=== PATIENT | male | born 1945 | race Caucasian/White ===

== ENCOUNTER 2021-11-27 14:19 | Emergency (ER) | payer MEDICARE, OTHER ==
[~2021-11-27] VITALS: Ht 185.4 cm; Wt 91.8 kg
[2021-11-27] MEDS ORDERED: ACHD5005 PO ×2 (14:47→16:02)
[2021-11-27] MEDS ORDERED: MONT-40 PO (14:48)
[2021-11-27] MEDS ORDERED: ATOR10TA PO (14:48)
[2021-11-27] MEDS ORDERED: ONDA4TAB11 PO (16:02)
--- NOTE | 2021-11-27 16:03 | ED General ---
General Chief Complaint: General Problems/Pain Stated Complaint: MED REFILL - HYDRO Nursing Triage Note: pt c/o abd pain due to liver cancer. he just moved here to be with family. pt took his last hydrocodone this morning. he is scheduled to see dr mireles on saturday at 0915. Source of Information: Patient, Family Exam Limitations: No Limitations (ZAY CHILDRESS) History of Present Illness Date Seen by Provider: Nov 27, 2021 Time Seen by Provider: 16:00 Initial Comments Patient is a 76-year-old male with a history of liver cancer, colon cancer, lung cancer. Patient recently moved from [place] living with family. Scheduled to follow-up with Dr. Mireles on Saturday. Does take pain medication as needed but was not able to get pain medication until seen on Saturday. He does report some nausea and vomiting but that has been ongoing. Reports radiation for his lung cancer. States he has been eating small amounts at but drinking plenty of fluids. Normal urination. He denies of any worsening pain. He refuses any lab work or further evaluation at this time. Requesting a few days worth of pain medicine and nausea medication. (ZAY CHILDRESS) Allergies and Home Medications Allergies Coded Allergies: Beta-Blockers (Beta-Adrenergic Bloc (Unverified Adverse Reaction, Unknown, fatigue, 11/27/21) NSAIDS (Non-Steroidal Anti-Inflamma (Unverified Adverse Reaction, Unknown, hives, 11/27/21) aspirin (Unverified Adverse Reaction, Unknown, hives, 11/27/21) peanut (Unverified Adverse Reaction, Unknown, hives, 11/27/21) Patient Home Medication List Home Medication List Reviewed: Yes (ZAY CHILDRESS) Home Medication List Reviewed: Yes (GIULIA WHITEHEAD MD) Atorvastatin Calcium (Lipitor) 10 Mg Tablet, 10 MG PO HS, (Reported) Entered as Reported by: CARLA DEVLIN on 11/27/211447 Last Action: New Order Hydrocodone/Acetaminophen (Hydrocodone-Acetamin 5-325 mg) 1 Each Tablet, 1 TAB PO Q8H PRN for PAIN-MODERATE (5-7), (Reported) Entered as Reported by: CARLA DEVLIN on 11/27/21 1447 Last Action: New Order Hydrocodone/Acetaminophen (Hydrocodone-Acetamin 5-325 mg) 1 Each Tablet, 1 TAB PO Q8H PRN for PAIN-MODERATE (5-7) Prescribed by: ASHWIN DIXON on 11/27/21 1603 Montelukast Sodium (Montelukast Sodium) 10 Mg Tablet, 10 MG PO HS, (Reported) Entered as Reported by: CARLA DEVLIN on 11/27/21 1448 Last Action: New Order Ondansetron (Ondansetron Odt) 4 Mg Tab.rapdis, 4 MG PO Q6H Prescribed by: ASHWIN DIXON on 11/27/21 1602 Review of Systems Review of Systems Constitutional: No chills, No diaphoresis, No malaise, No weakness EENTM: No double vision, No mouth pain Respiratory: No cough, No short of breath, No wheezing Cardiovascular: No chest pain Gastrointestinal: No RUQ; abdominal pain, nausea, vomiting Genitourinary: No decreased output Musculoskeletal: No back pain, No joint pain; muscle pain Skin: No change in color, No change in hair/nails (ZAY CHILDRESS) All Other Systems Reviewed Negative Unless Noted: Yes (ZAY CHILDRESS) Physical Exam Vital Signs Vital Signs - First Documented 11/27/21 11/27/21 14:39 16:11 Temp 36.3 Pulse 82 Resp 17 B/P (MAP) 141/82 Pulse Ox 96 O2 Delivery Room Air (GIULIA WHITEHEAD MD) Vital Signs Capillary Refill : Less Than 3 Seconds (ZAY CHILDRESS) Height, Weight, BMI Height: '" Weight: lbs. oz. kg; 26.00 BMI Method: General Appearance: No Apparent Distress, WD/WN Eyes: Bilateral Eye Normal Inspection, Bilateral Eye PERRL, Bilateral Eye EOMI HEENT: PERRL/EOMI, TMs Normal, Normal ENT Inspection, Pharynx Normal Neck: Full Range of Motion, Normal Inspection Respiratory: Chest Non Tender, Lungs Clear, Normal Breath Sounds, No Accessory Muscle Use, No Respiratory Distress Cardiovascular: Regular Rate, Rhythm, No Edema, No Gallop, No JVD, No Murmur Gastrointestinal: Normal Bowel Sounds, No Organomegaly, No Pulsatile Mass, Soft Back: Normal Inspection, No CVA Tenderness Extremity: Normal Capillary Refill, Normal Inspection, Normal Range of Motion, Non Tender Skin: Normal Color, Warm/Dry (ZAY CHILDRESS) Progress/Results/Core Measures Suspected Sepsis SIRS Temperature: Pulse: Respiratory Rate: Blood Pressure / Mean: (ZAY CHILDRESS) Results/Orders Vital Signs/I&O 11/27/21 11/27/21 14:39 16:11 Temp 36.3 36.3 Pulse 82 Resp 17 B/P (MAP) 141/82 Pulse Ox 96 O2 Delivery Room Air (GIULIA WHITEHEAD MD) Vital Signs/I&O Capillary Refill : Less Than 3 Seconds (ZAY CHILDRESS) Departure Communication (PCP) Patient reports chronic pain. He takes hydrocodone every 8 hours as needed for pain. Recently moved down from [place] to be closer his family secondary to his current health and not able to take care of himself. He is scheduled follow-up with Dr. Mireles on Saturday. Has not establish care. History liver cancer, lung cancer and colon cancer. He has been eating but a low amount. Generalized abdominal pain and chest discomfort without any current pain at this time. He takes pain medication which improves his pain. He refused any lab work or any type of work-up at this time. He is requesting a few days worth of pain medication till he can see his primary care physician. Requesting Zofran. Vital signs stable. Patient states he feels well and feels like he can go home at this time and if any change in symptoms he already return back to ED. Once again refused any further lab work at this time. (ZAY CHILDRESS) Impression Primary Impression: Medication refill Disposition: HOME, SELF-CARE Condition: Stable Departure-Patient Inst. Decision time for Depature: 16:01 (ZAY CHILDRESS) Referrals: RADHA MIRELES DO (PCP/Family) Primary Care Physician Patient Instructions: Medication Safety, Adult Scripts Hydrocodone/Acetaminophen (Hydrocodone-Acetamin 5-325 mg) 1 Each Tablet 1 TAB PO Q8H PRN for PAIN-MODERATE (5-7), #10 TAB Prov: ZAY CHILDRESS 11/27/21 Ondansetron (Ondansetron Odt) 4 Mg Tab.rapdis 4 MG PO Q6H, #10 TAB Prov: ZAY CHILDRESS 11/27/21 ZAY CHILDRESS Nov 27, 2021 16:03 GIULIA WHITEHEAD MD Nov 28, 2021 06:11
[2021-11-27 16:11] VITALS: BP 141/82
== END 2021-11-27 16:11 | disposition home or self-care (01) ==
LOC: ER 14:22
DX: Z76.0 Encounter for issue of repeat prescription (principal)
CPT/HCPCS: 99281

== ENCOUNTER → 2021-11-29 | Outpatient (CLI) | payer MEDICARE ==
[~2021-11-29] MED LIST: ACHD5005 PO; ATOR10TA PO; DOCU-143 PO; MONT-40 PO; NITR-65 PO; ONDA4TAB11 PO; ONDA4TAB11 SL; OXYC10TA55 PO; OXYC5TAB PO
[2021-11-29 12:02] LABS: CLARITY,URINE CLOUDY; COLOR,URINE YELLOW; GLUCOSE, URINE (UA) NEGATIVE (NEGATIVE); KETONES,URINE TRACE (NEGATIVE); LEUKOCYTE ESTERASE ,URINE 2+ (NEGATIVE); NITRITE,URINE NEGATIVE (NEGATIVE); PROTEIN,URINE 1+ (NEGATIVE)
[2021-11-29 12:03] LABS: BASOPHILS % (AUTO) 0 % (0-10); EOSINOPHILS # (AUTO) 0.2 10^3/uL (0.0-0.3); EOSINOPHILS % (AUTO) 1 % (0-10); HEMATOCRIT 41 % (40-54); HEMOGLOBIN 13.6 g/dL (13.3-17.7); LYMPHOCYTES % (AUTO) 8 % (12-44); MEAN CORPUSCULAR HEMOGLOBIN 30 pg (25-34); MEAN CORPUSCULAR HGB CONC 33 g/dL (32-36); MEAN CORPUSCULAR VOLUME 90 fL (80-99); MEAN PLATELET VOLUME 10.7 fL (9.0-12.2); MONOCYTES # (AUTO) 1.1 10^3/uL (0.0-1.0); MONOCYTES % (AUTO) 8 % (0-12); NEUTROPHILS % (AUTO) 82 % (42-75); PLATELET COUNT 453 10^3/uL (130-400); WHITE BLOOD COUNT 13.3 10^3/uL (4.3-11.0)
[2021-11-29 12:25] LABS: ALBUMIN 3.3 GM/DL (3.2-4.5); BILIRUBIN,TOTAL 2.9 MG/DL (0.1-1.0); CREATININE SERUM 0.83 MG/DL (0.60-1.30); POTASSIUM 4.6 MMOL/L (3.6-5.0); TOTAL PROTEIN 7.6 GM/DL (6.4-8.2)
[2021-11-29 12:32] LABS: BILIRUBIN,URINE 2+ (NEGATIVE)
[2021-11-29 12:33] LABS: BACTERIA,URINE LARGE /HPF; RBC,URINE 0-2 /HPF; SQUAMOUS EPITHELIAL CELL,UR 0-2 /HPF; WBC,URINE 50-100 /HPF
--- NOTE | 2021-11-29 12:36 | Diagnostic Imaging Report ---
INDICATION: Liver cancer. TIME OF EXAM: 12:09 PM. COMPARISON: No prior studies are available for comparison. FINDINGS: There are surgical clips in the right abdomen. There are some calcific densities in both the right and left abdomen which could be renal calculi. The bowel gas pattern appears nonobstructed. There is moderate stool in the colon. No free air is seen. IMPRESSION: Abdominal calcifications which could be urinary tract in origin. CT may be useful for further evaluation if clinically indicated. The study is otherwise unremarkable. Dictated by: Dictated on workstation # [id number]
== END ==
LOC: RAD 11:23
PROVIDERS: ATTEND Family Medicine
DX: C22.9 Malignant neoplasm of liver, not specified as primary or secondary (principal); C18.9 Malignant neoplasm of colon, unspecified; C34.90 Malignant neoplasm of unspecified part of unspecified bronchus or lung
CPT/HCPCS: 36415; 74019; 80053; 80061; 81000; 85025; 85730; 87088

== ENCOUNTER 2021-12-01 06:27 | Emergency (ER) | payer MEDICARE ==
[~2021-12-01] VITALS: Ht 183 cm; Wt 86.6 kg
[~2021-12-01 06:27] MED LIST changes: -DOCU-143 PO; -NITR-65 PO; -ONDA4TAB11 SL; -OXYC10TA55 PO; -OXYC5TAB PO
[2021-12-01] MEDS ORDERED: fentaNYL INJ 100 MCG/2 ML AMP IVP ONE (06:45)
[2021-12-01 06:57] LABS: INR 1.1 (0.8-1.4); PROTHROMBIN TIME PATIENT 14.5 SEC (12.2-14.7)
[2021-12-01 06:59] LABS: BASOPHILS % (AUTO) 0 % (0-10); EOSINOPHILS # (AUTO) 0.2 10^3/uL (0.0-0.3); EOSINOPHILS % (AUTO) 2 % (0-10); HEMATOCRIT 39 % (40-54); HEMOGLOBIN 13.5 g/dL (13.3-17.7); LYMPHOCYTES # (AUTO) 0.9 10^3/uL (1.0-4.0); LYMPHOCYTES % (AUTO) 6 % (12-44); MEAN CORPUSCULAR HEMOGLOBIN 30 pg (25-34); MEAN CORPUSCULAR HGB CONC 34 g/dL (32-36); MEAN CORPUSCULAR VOLUME 88 fL (80-99); MEAN PLATELET VOLUME 10.7 fL (9.0-12.2); MONOCYTES # (AUTO) 1.4 10^3/uL (0.0-1.0); MONOCYTES % (AUTO) 10 % (0-12); NEUTROPHILS # (AUTO) 11.9 10^3/uL (1.8-7.8); NEUTROPHILS % (AUTO) 82 % (42-75); PLATELET COUNT 503 10^3/uL (130-400); WHITE BLOOD COUNT 14.5 10^3/uL (4.3-11.0)
[2021-12-01 07:00] LABS: ALBUMIN 3.2 GM/DL (3.2-4.5)
[2021-12-01 07:01] LABS: CALCIUM 10.2 MG/DL (8.5-10.1)
[2021-12-01 07:02] LABS: TOTAL PROTEIN 7.7 GM/DL (6.4-8.2)
--- NOTE | 2021-12-01 07:02 | ED Cough/URI ---
General Chief Complaint: Respiratory Problems Stated Complaint: SOB,LIVER CA Nursing Triage Note: c/o cough, soa, gen pain since 0000 Source: patient Exam Limitations: no limitations (ALLY VERAS MED STUDENT) History of Present Illness Date Seen by Provider: Dec 01, 2021 Time Seen by Provider: 06:45 Initial Comments Mr. Abarca is a 76yo male with PMH of Lung cancer, COPD, and non-treatable liver cancer that presents to ED today due to cough and SOB. States he Recently moved to [place] with his daughter due to the status of his cancer, the inability to care for himself, and to live with his daughter. He does not have a local oncologist. States that for the past couple of days he has had a cough, SOA, and yellow phlegm. He came in this morning because his cough was worse and feeling like it was harder to breathe. He also has chronic abdominal and back pain related to his cancer. He also expressed wanting to get some pain control and he and his daughter would also like to get the process of hospice started. He is currently being treated for UTI. (ALLY VERAS MED STUDENT) Allergies and Home Medications Allergies Coded Allergies: Beta-Blockers (Beta-Adrenergic Bloc (Unverified Adverse Reaction, Unknown, fatigue, 11/27/21) NSAIDS (Non-Steroidal Anti-Inflamma (Unverified Adverse Reaction, Unknown, hives, 11/27/21) aspirin (Unverified Adverse Reaction, Unknown, hives, 11/27/21) peanut (Unverified Adverse Reaction, Unknown, hives, 11/27/21) Patient Home Medication List Home Medication List Reviewed: Yes (BEVERLY FOREBS MD) Atorvastatin Calcium (Lipitor) 10 Mg Tablet, 10 MG PO HS, (Reported) Entered as Reported by: CARLA DEVLIN on 11/27/21 1448 Docusate Sodium (Colace) 100 Mg Capsule, 100 MG PO DAILY Prescribed by: BEVERLY DEAN on 12/01/21 0838 Hydrocodone/Acetaminophen (Hydrocodone-Acetamin 5-325 mg) 1 Each Tablet, 1 TAB PO Q8H PRN for PAIN-MODERATE (5-7), (Reported) Entered as Reported by: CARLA DEVLIN on 11/27/21 1447 Hydrocodone/Acetaminophen (Hydrocodone-Acetamin 5-325 mg) 1 Each Tablet, 1 TAB PO Q8H PRN for PAIN-MODERATE (5-7) Prescribed by: ASHWIN DIXON on 11/27/21 1603 Montelukast Sodium (Montelukast Sodium) 10 Mg Tablet, 10 MG PO HS, (Reported) Entered as Reported by: CARLA DEVLIN on 11/27/21 1448 Nitrofurantoin Monohyd/M-Cryst (Macrobid 100 mg Capsule) 100 Mg Capsule, 1 TAB PO BID Prescribed by: BEVERLY DEAN on 12/01/21 0909 Ondansetron (Ondansetron Odt) 4 Mg Tab.rapdis, 4 MG PO Q6H Prescribed by: ASHWIN DIXON on 11/27/21 1602 Ondansetron (Ondansetron Odt) 4 Mg Tab.rapdis, 4 MG SL Q4H PRN for NAUSEA/VOMITING Prescribed by: BEVERLY DEAN on 12/01/21 0838 Oxycodone HCl (Oxycontin) 10 Mg Tab.er.12h, 10 MG PO BID Prescribed by: BEVERLY DEAN on 12/01/21 0839 Oxycodone HCl (Oxycodone HCl) 5 Mg Tablet, 5 MG PO Q6H PRN for PAIN-BREAKTHROUGH Prescribed by: BEVERLY DEAN on 12/01/21 0839 Review of Systems Review of Systems Constitutional: No chills, No fever EENTM: No hearing loss, No vision loss Respiratory: cough; No hemoptysis; short of breath; No wheezing Cardiovascular: No chest pain, No palpitations Gastrointestinal: abdominal pain (diffuse); No constipation, No diarrhea, No nausea, No vomiting Genitourinary: No dysuria, No hematuria Musculoskeletal: No joint pain, No joint swelling Skin: No lesions, No rash Psychiatric/Neurological: Denies Headache, Denies Numbness (ALLY VERAS MED STUDENT) Past Ebvjswi-Qhicah-Jnaqgy Hx Patient Social History Tobacco Use?: No Substance use?: No Alcohol Use?: No Pt feels they are or have been: No (ALLY VERAS MED STUDENT) Past Medical History Surgery/Hospitalization HX: hernia, cholecystectomy, copd, liver ca, lung ca, high lipids (ALLY VERAS [employer] STUDENT) Surgeries: Yes Abdominal (hernia), Gallbladder Respiratory: Yes COPD Cardiac: Yes High Cholesterol Neurological: No Reproductive Disorders: No Gastrointestinal: No Musculoskeletal: No Endocrine: No HEENT: No Cancer: Yes Liver, Lung Did You Recieve Any Treatments: Yes Psychosocial: No Integumentary: No (BEVERLY FORBES MD) Physical Exam Vital Signs - First Documented 12/01/21 06:30 Temp 36.4 Pulse 94 Resp 18 B/P (MAP) 137/91 (106) Pulse Ox 92 O2 Delivery Room Air (BEVERLY FORBES MD) Capillary Refill : (ALLY VERAS STUDENT) Height: '" Weight: lbs. oz. kg; 25.00 BMI Method: General Appearance: mild distress, other (chronically ill) Eyes: Bilateral Eye Normal Inspection, Bilateral Eye PERRL, Bilateral Eye EOMI HEENT: PERRL/EOMI, pharynx normal Respiratory: chest non-tender, crackles (R base) Cardiovascular: regular rate, rhythm, no edema, no murmur Gastrointestinal: normal bowel sounds, distended, tenderness (generalized), hernia (umbilical), other (abdomen is firm and swollen) Extremities: non-tender, no pedal edema, no calf tenderness Neurologic/Psychiatric: alert, normal mood/affect, oriented x 3 Skin: normal color, warm/dry (ALLY VERAS STUDENT) Progress/Results/Core Measures Suspected Sepsis SIRS Temperature: Pulse: 94 Respiratory Rate: 18 Laboratory Tests 12/01/21 06:35: Blood Pressure 137 /91 Mean: 106 Laboratory Tests 12/01/21 06:35: (ALLY VERAS STUDENT) Results/Orders Lab Results Laboratory Tests Test 12/01/21 06:35 12/01/21 06:52 Range/Units White Blood Count 14.5 H 4.3-11.0 10^3/uL Red Blood Count 4.50 4.30-5.52 10^6/uL Hemoglobin 13.5 13.3-17.7 g/dL Hematocrit 39 L 40-54 % Mean Corpuscular Volume 88 80-99 fL Mean Corpuscular Hemoglobin 30 25-34 pg Mean Corpuscular Hemoglobin Concent 34 32-36 g/dL Red Cell Distribution Width 16.0 H 10.0-14.5 % Platelet Count 503 H 130-400 10^3/uL Mean Platelet Volume 10.7 9.0-12.2 fL Immature Granulocyte % (Auto) 1 % Neutrophils (%) (Auto) 82 H 42-75 % Lymphocytes (%) (Auto) 6 L 12-44 % Monocytes (%) (Auto) 10 0-12 % Eosinophils (%) (Auto) 2 0-10 % Basophils (%) (Auto) 0 0-10 % Neutrophils # (Auto) 11.9 H 1.8-7.8 10^3/uL Lymphocytes # (Auto) 0.9 L 1.0-4.0 10^3/uL Monocytes # (Auto) 1.4 H 0.0-1.0 10^3/uL Eosinophils # (Auto) 0.2 0.0-0.3 10^3/uL Basophils # (Auto) 0.0 0.0-0.1 10^3/uL Immature Granulocyte # (Auto) 0.1 0.0-0.1 10^3/uL Neutrophils % (Manual) 81 % Lymphocytes % (Manual) 10 % Monocytes % (Manual) 8 % Band Neutrophils 1 % Blood Morphology Comment NORMAL Prothrombin Time 14.5 12.2-14.7 SEC INR Comment 1.1 0.8-1.4 Sodium Level 132 L 135-145 MMOL/L Potassium Level 5.0 3.6-5.0 MMOL/L Chloride Level 94 L 98-107 MMOL/L Carbon Dioxide Level 20 L 21-32 MMOL/L Anion Gap 18 H 5-14 MMOL/L Blood Urea Nitrogen 22 H 7-18 MG/DL Creatinine 0.78 0.60-1.30 MG/DL Estimat Glomerular Filtration Rate 93 BUN/Creatinine Ratio 28 Glucose Level 77 70-105 MG/DL Calcium Level 10.2 H 8.5-10.1 MG/DL Corrected Calcium 10.8 H 8.5-10.1 MG/DL Total Bilirubin 3.5 H 0.1-1.0 MG/DL Aspartate Amino Transf (AST/SGOT) 252 H 5-34 U/L Alanine Aminotransferase (ALT/SGPT) 103 H 0-55 U/L Alkaline Phosphatase 1052 H 40-136 U/L C-Reactive Protein High Sensitivity 28.77 H 0.00-0.50 MG/DL Total Protein 7.7 6.4-8.2 GM/DL Albumin 3.2 3.2-4.5 GM/DL Influenza Type A (RT-PCR) Not Detected Not Detecte Influenza Type B (RT-PCR) Not Detected Not Detecte SARS-CoV-2 RNA (RT-PCR) Not Detected Not Detecte (BEVERLY FORBES MD) My Orders Orders - BEVERLY FORBES MD Chest Pa/Lat (2 View) (12/01/21 06:34) Fentanyl Inj (Sublimaze Injection) (12/01/21 06:45) Cbc With Automated Diff (12/01/21 06:45) Comprehensive Metabolic Panel (12/01/21 06:45) Hs C Reactive Protein (12/01/21 06:45) Protime With Inr (12/01/21 06:45) Covid 19 Inhouse Test (12/01/21 06:45) Influenza A And B By Pcr (12/01/21 06:45) Manual Differential (12/01/21 06:35) Ekg Tracing (12/01/21 07:00) Morphine Injection (Morphine Injection (12/01/21 07:22) Ondansetron Injection (Zofran Injectio (12/01/21 08:45) Code/Resuscitation (12/01/21 08:32) (BEVERLY FORBES MD) Medications Given in ED Current Medications Medications Dose Ordered Sig/Obey Route Start Time Stop Time Status Last Admin Dose Admin Fentanyl Citrate 50 mcg ONCE ONCE IVP 12/01/21 06:45 12/01/21 06:47 DC 12/01/21 06:52 50 MCG Ondansetron HCl 4 mg ONCE ONCE IVP 12/01/21 08:45 12/01/21 08:46 DC 12/01/21 09:23 4 MG (BEVERLY FORBES MD) Vital Signs/I&O 12/01/21 06:30 Temp 36.4 Pulse 94 Resp 18 B/P (MAP) 137/91 (106) Pulse Ox 92 O2 Delivery Room Air (BEVERLY FORBES MD) Vital Signs/I&O Capillary Refill : (ALLY VERAS MED STUDENT) Blood Pressure Mean: 106 Progress Note : Progress Note Pain was managed with IV fentanyl and morphine. Urine culture was reviewed and showed a gram-negative bacillus. Macrobid was added for broader coverage until final cultures are known. Chest x-ray demonstrated no evidence of pneumonia. He was instructed to continue on amoxicillin. We discussed pain management options. Morphine seem to control his pain much better than the fentanyl. I therefore prescribed OxyContin for long-acting pain control with oxycodone for breakthrough pain. Patient and his daughter are both in agreement that hospice would be ideal at this time, especially given their conversation with the oncologist in [place]. At their understanding was that his cancer is now terminal and palliative care is most appropriate. We discussed CODE STATUS and patient and daughter are both in agreement with DNR. Consult with Julien ROACH on the palliative care team was pursued. She met with patient and yamileth cotto and arranged for hospice enrollment with [facility]. See discharge instructions for further discussion. (BEVERLY FORBES MD) ECG Initial ECG Impression Date: Dec 01, 2021 Initial ECG Impression Time: 06:36 Initial ECG Rate: 92 Initial ECG Rhythm: Normal Sinus Comment Sinus rhythm with no ST elevation or depression. Left anterior fascicular block and PVCs noted. No abnormal axis deviation. (BEVERLY FORBES MD) Diagnostic Imaging Diagonstic Imaging: Xray Plain Films/CT/US/NM/MRI: chest Comments Chest x-ray viewed by me and report reviewed. See report below: NAME: ERWIN ABARCA [facility] REC#: [id number] PT STATUS: REG ER : 1945 PHYSICIAN: BEVERLY FORBES MD ADMIT DATE: 12/01/21/ER Draft Date of Exam:12/01/21 CHEST PA/LAT (2 VIEW) INDICATION: Shortness of breath. FINDINGS: PA and lateral views. There is mild obstructive lung disease. Mild interstitial markings are seen in the lung bases. There do appear to be several calcified granulomata throughout the lungs more prominent on the left. No acute infiltrates are seen. The heart is not enlarged. No evidence of pulmonary edema. No pneumothorax or pleural effusion. No bony abnormalities. IMPRESSION: 1. Mild obstructive interstitial lung disease. 2. Calcified granulomatous changes. Dictated on workstation # [id number] Dict: 12/01/21 0735 Trans: 12/01/21 0740 [facility] [id number] Interpreted by: CÉSAR CHPAMAN MD (BEVERLY FORBES MD) Departure Impression Primary Impression: Liver cancer Qualified Codes: C22.9 - Malignant neoplasm of liver, not specified as primary or secondary Additional Impressions: Cancer associated pain Urinary tract infection Qualified Codes: N39.0 - Urinary tract infection, site not specified Nausea Cough Disposition: HOME, SELF-CARE Condition: Improved Departure-Patient Inst. Referrals: RADHA MIRELES DO (PCP/Family) Primary Care Physician Patient Instructions: Cancer Pain Syndromes (DC), Liver Cancer Add. Discharge Instructions: Drink plenty of clear liquids to stay well-hydrated. It may be helpful to select a beverage with protein in it such as Ensure or Breeze. Stop atorvastatin. This medication may worsen liver issues and pain without any overall health benefit at this point. Use OxyContin twice daily for maintenance pain control. Use the oxycodone for breakthrough pain as prescribed. It would be ruelas to use a stool softener such as Colace while on opioid pain medications to help reduce constipation. Take Zofran as prescribed for nausea vomiting. Add Macrobid (nitrofurantoin) as prescribed for treatment of urinary tract infection. Review urine culture results with Dr. Mireles on Saturday and adjust antibiotics if necessary. Please be advised this antibiotic may cause your urine to have an orange-camila or reddish appearance. This is normal. Call with questions or concerns about your instructions today. For other concerns or issues, please use your hospice nurse as the first line of contact. If there are new issues or worsening symptoms, you may consult with your hospice nurse to determine if further evaluation at the hospital is appropriate. Follow-up with Dr. Mireles next week for a checkup. All discharge instructions reviewed with patient and/or family. Voiced understanding. Scripts Nitrofurantoin Monohyd/M-Cryst (Macrobid 100 mg Capsule) 100 Mg Capsule 1 TAB PO BID, #14 CAP Prov: BEVERLY FORBES MD 12/01/21 Oxycodone HCl (Oxycodone HCl) 5 Mg Tablet 5 MG PO Q6H PRN for PAIN-BREAKTHROUGH, #20 TAB Prov: BEVERLY FORBES MD 12/01/21 Oxycodone HCl (Oxycontin) 10 Mg Tab.er.12h 10 MG PO BID, #14 TAB Prov: BEVERLY FORBES MD 12/01/21 Ondansetron (Ondansetron Odt) 4 Mg Tab.rapdis 4 MG SL Q4H PRN for NAUSEA/VOMITING, #10 TAB Prov: BEVERLY FORBES MD 12/01/21 Docusate Sodium (Colace) 100 Mg Capsule 100 MG PO DAILY, #30 CAP Prov: BEVERLY FORBES MD 12/01/21 Medical Student Attestation and Attending Note: I have personally interviewed and examined this patient along with Ally Veras, MS 4. I have reviewed student documentation including history, physical, and assessments. I agree with the documentation except where otherwise noted. Exam: General: Alert, oriented, mild acute distress, well developed HEENT: Normocephalic and atraumatic, oropharynx dry Heart: Regular rate and rhythm without murmur Lungs: Crackles in the right base but otherwise clear to auscultation bilaterally with normal effort Abdomen: Soft, generalized tenderness, nondistended, normal bowel sounds Neuropsych: Alert, oriented, no focal deficits Skin: Warm and dry without rashes (BEVERLY FORBES MD) Copy Copies To 1: RADHA MIRELES DEREK MED STUDENT Dec 01, 2021 07:02 BEVERLY FORBES MD Dec 01, 2021 07:21
[2021-12-01 07:04] LABS: BILIRUBIN,TOTAL 3.5 MG/DL (0.1-1.0)
[2021-12-01 07:06] LABS: CREATININE SERUM 0.78 MG/DL (0.60-1.30)
[2021-12-01 07:17] LABS: BAND NEUTROPHILS 1 %; LYMPHOCYTES % (MANUAL) 10 %; MONOCYTES % (MANUAL) 8 %; NEUTROPHILS % (MANUAL) 81 %; RBC MORPH NORMAL
[2021-12-01] MEDS ORDERED: morphine INJ 10 MG/ML 1ML (SYR OR VIAL) IVP STA (07:22)
--- NOTE | 2021-12-01 07:40 | Diagnostic Imaging Report ---
INDICATION: Shortness of breath. FINDINGS: PA and lateral views. There is mild obstructive lung disease. Mild interstitial markings are seen in the lung bases. There do appear to be several calcified granulomata throughout the lungs more prominent on the left. No acute infiltrates are seen. The heart is not enlarged. No evidence of pulmonary edema. No pneumothorax or pleural effusion. No bony abnormalities. IMPRESSION: 1. Mild obstructive interstitial lung disease. 2. Calcified granulomatous changes. Dictated by: Dictated on workstation # [id number]
[2021-12-01] MEDS ORDERED: OXYC10TA55 PO (08:38)
[2021-12-01] MEDS ORDERED: ONDA4TAB11 SL (08:38)
[2021-12-01] MEDS ORDERED: DOCU-143 PO (08:38)
[2021-12-01] MEDS ORDERED: OXYC5TAB PO (08:38)
[2021-12-01] MEDS ORDERED: ONDANSETRON 4 MG/2 ML (SDV) Z0FRAN IVP ONE (08:45)
[2021-12-01] MEDS ORDERED: NITR-65 PO (09:09)
[2021-12-01 09:31] VITALS: BP 140/84
== END 2021-12-01 09:31 | disposition home or self-care (01) ==
LOC: EDUNIT# 06:27 → ER 06:30
DX: C22.9 Malignant neoplasm of liver, not specified as primary or secondary (principal); G89.3 Neoplasm related pain (acute) (chronic); N39.0 Urinary tract infection, site not specified; Z20.822 Contact with and (suspected) exposure to COVID-19
CPT/HCPCS: 36415; 71046; 80053; 85007; 85027; 85610; 86141; 87636; 93005